=== PATIENT | female | born 2000 | race Caucasian/White ===

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

== ENCOUNTER 2024-01-27 09:01 | Emergency (ER) | payer OTHER ==
[2024-01-27] MEDS: Ketorolac 30 MG/ML SDV IM ONE (09:45)
[2024-01-27] MEDS: Ondansetron 4 MG Tab.DIS PO STA (09:45)
[2024-01-27] MEDS: Cyclobenzaprine 10 MG Tab PO ONE (09:47)
== END 2024-01-27 10:26 | disposition home or self-care (01) ==
LOC: FB.ED 09:01
DX: S16.1XXA Strain of muscle, fascia and tendon at neck level, initial encounter (principal); M54.81 Occipital neuralgia; Z79.899 Other long term (current) drug therapy; V49.40XA Driver injured in collision with unspecified motor vehicles in traffic accident, initial encounter; Y92.410 Unspecified street and highway as the place of occurrence of the external cause
CPT/HCPCS: 70450; 72040; 96372; 99284; A9270; J1885; Q0162